=== PATIENT | female | born 1990 | race Two or more races ===

== ENCOUNTER 2023-05-15 04:49 | Day surgery (SDC) | payer OTHER ==
[2023-05-12 12:49] VITALS: BMI 25.4
[2023-05-15 08:21] VITALS: TEMP 98
[2023-05-15 08:43] VITALS: RESP 18
[2023-05-15 08:46] VITALS: BP 109/72; PULSE 74
== END 2023-05-15 08:50 | disposition home or self-care (01) ==
LOC: JASU-ENDO 04:49
PROVIDERS: ATTEND Internal Medicine Gastroenterology
PROC: 0DB78ZX Excision of Stomach, Pylorus, Via Natural or Artificial Opening Endoscopic, Diagnostic (ICD-10-PCS; 2023-05-15)
PROC: 0DB68ZX Excision of Stomach, Via Natural or Artificial Opening Endoscopic, Diagnostic (ICD-10-PCS; principal; 2023-05-15 08:00)
DX: K29.50 Unspecified chronic gastritis without bleeding (principal)
CPT/HCPCS: 81025; 88305-TC; 88342-TC

== ENCOUNTER 2024-03-16 12:50 | Emergency (ER) | payer OTHER ==
[2024-03-16 13:25] VITALS: BP 115/79; PULSE 88; RESP 18; TEMP 97.8; BMI 26.8
[2024-03-16] MEDS ORDERED: FAMOTIDINE 20 MG/50 ML IVPB 20 MG/50 ML MG IVPB ONE (13:49)
[2024-03-16] MEDS ORDERED: METOCLOPRAMIDE HCL INJECTION 10 MG/2 ML VIAL ONE (13:49)
[2024-03-16] MEDS ORDERED: SUCRALFATE 1 GM TABLET (FP) ONE (13:49)
[2024-03-16] MEDS ORDERED: ACETAMINOPHEN INJECTION 100 ML ONE (13:49)
[2024-03-16] MEDS: FAMOTIDINE 20 MG/50 ML IVPB 20 MG/50 ML MG IVPB ONE (14:22)
[2024-03-16] MEDS: SUCRALFATE 1 GM TABLET (FP) PO SCH (14:22)
[2024-03-16] MEDS: LACTATED RINGERS SOLUTION 1000 ML INFUS.BAG IV ONE (14:22)
[2024-03-16] MEDS: METOCLOPRAMIDE HCL INJECTION 10 MG/2 ML VIAL IVPUSH ONE (14:22)
[2024-03-16] MEDS: ACETAMINOPHEN 1000 MG/100 ML BAG IVPB ONE (14:22)
[2024-03-16 14:28] LABS: BASO % 1.3 % (0-2.0); EOS % 0.3 % (0-4.5); HEMATOCRIT 30.1 % (32.4-45.2); HEMOGLOBIN 9.1 GM/dL (10.7-15.3); LYMPH % 19.7 % (8-40); MCHC 30.2 g/dl (32.0-36.0); MEAN CELL VOLUME 59.6 fl (80-96); MONO % 13.5 % (3.8-10.2); NEUT % 65.2 % (42.8-82.8); PLATELET COUNT 294 10^3/uL (134-434); RBC 5.05 M/mm3 (3.60-5.2); RDW 20.2 % (11.6-15.6); WHITE BLOOD COUNT 4.6 K/mm3 (4.0-10.0)
[2024-03-16] MEDS ORDERED: MAG HYDROX/AL HYDROX/SIMETH 30 ML UNIT-DOSE CUP ONE (14:32)
[2024-03-16] MEDS: MAG HYDROX/AL HYDROX/SIMETH -MYLANTA- ORAL SUSPENSION PO ONE (14:37)
[2024-03-16 14:44] LABS: POTASSIUM 4.3 mmol/L (3.5-5.1)
[2024-03-16 14:46] LABS: ALBUMIN 3.9 g/dl (3.4-5.0); BLOOD UREA NITROGEN 7.4 mg/dL (7-18); CALCIUM 9.3 mg/dL (8.5-10.1)
[2024-03-16 14:49] LABS: CREATININE 0.8 mg/dL (0.55-1.3)
[2024-03-16 14:51] LABS: BILIRUBIN,TOTAL 0.3 mg/dL (0.2-1); TOT PROT 7.5 g/dl (6.4-8.2)
[2024-03-16 14:58] LABS: ANISOCYTOSIS 3+; MACROCYTOSIS 0; OVALOCYTE 1+
[2024-03-16 15:00] LABS: PLATELET ESTIMATE ADEQUATE
[2024-03-16 15:48] LABS: PH,URINE 6.5 (5.0-8.0); URINE APPEARANCE CLEAR; URINE BILIRUBIN NEGATIVE (NEGATIVE); URINE COLOR YELLOW; URINE GLUCOSE (UA) NEGATIVE (NEGATIVE); URINE KETONE TRACE (NEGATIVE); URINE LEUK ESTERASE NEGATIVE (NEGATIVE); URINE NITRITE NEGATIVE (NEGATIVE); URINE PROTEIN NEGATIVE (NEGATIVE); URINE UROBILINOGEN 0.2 mg/dL (0.2-1.0)
[2024-03-16 19:09] LABS: HIV INTERPRETATION NEGATIVE (NEGATIVE)
== END 2024-03-16 16:14 | disposition home or self-care (01) ==
LOC: JER 12:50
PROC: 3E033GC Introduction of Other Therapeutic Substance into Peripheral Vein, Percutaneous Approach (ICD-10-PCS; principal; 2024-03-16)
PROC: 3E033NZ Introduction of Analgesics, Hypnotics, Sedatives into Peripheral Vein, Percutaneous Approach (ICD-10-PCS; 2024-03-16)
PROC: 3E033GC Introduction of Other Therapeutic Substance into Peripheral Vein, Percutaneous Approach (ICD-10-PCS; 2024-03-16)
DX: G43.909 Migraine, unspecified, not intractable, without status migrainosus (principal); R30.0 Dysuria; R20.0 Anesthesia of skin; R42 Dizziness and giddiness
CPT/HCPCS: 36415; 70450-TC; 80053; 81003; 83690; 84484; 84703; 85025; 86803; 87086; 87389; 93005; 93010; 96365; 96375; 99285-25; J0131